=== PATIENT | female | born 1965 | race Caucasian/White ===

== ENCOUNTER 2019-09-08 12:37 | Observation (INO) | payer BC ==
[~2019-09-08] VITALS: Ht 175.3 cm; Wt 81.8 kg
[2019-09-08] MEDS ORDERED: normal saline 1000ML IV soln IVB ONE (13:10)
[2019-09-08 13:12] LABS: BASOPHILS % (AUTO) 0.5 % (0-1); EOSINOPHILS # (AUTO) 0.2 X10'3 (0-0.9); EOSINOPHILS % (AUTO) 2.4 % (0-6); HEMATOCRIT 38.6 % (35.0-45.0); LYMPHOCYTES # (AUTO) 2.4 X10'3 (1.1-4.8); LYMPHOCYTES % (AUTO) 35.1 % (21-51); MEAN CORPUSCULAR HEMOGLOBIN 30.5 PG (27.0-31.0); MEAN CORPUSCULAR HGB CONC 33.7 g/dL (33.0-36.5); MEAN CORPUSCULAR VOLUME 90.5 FL (78-98); MEAN PLATELET VOLUME 8.3 FL (7.4-10.4); MONOCYTES # (AUTO) 0.5 X10'3 (0-0.9); MONOCYTES % (AUTO) 7.9 % (2-12); NEUTROPHILS # (AUTO) 3.7 X10'3 (1.8-7.7); NEUTROPHILS % (AUTO) 54.1 % (42-75); PLATELET COUNT 225 X10'3 (140-440); RED BLOOD COUNT 4.26 X10'6 (4.20-5.60); RED CELL DISTRIBUTION WIDTH 13.5 % (11.5-14.5); WHITE BLOOD COUNT 6.8 X10'3 (4.5-11.0)
[2019-09-08] MEDS ORDERED: iohexol 350MG/ML 100ml bottle IV ONE (13:26)
[2019-09-08 13:28] LABS: ALANINE AMINOTRANSFERASE 22 U/L (12-78); ALBUMIN 3.4 G/DL (3.4-5.0); ALBUMIN/GLOBULIN RATIO 0.9 (1.1-1.5); ALKALINE PHOSPHATASE 92 IU/L (46-116); ANION GAP 8 (8-16); ASPARTATE AMINO TRANSFERASE 26 U/L (10-37); BILIRUBIN,TOTAL 0.3 MG/DL (0.1-1.0); BLOOD UREA NITROGEN 13 MG/DL (7-18); BUN/CREATININE RATIO 17.1 (6.6-38.0); CALCIUM 9.3 MG/DL (8.5-10.1); CHLORIDE 105 MMOL/L (99-107); CREATININE 0.76 MG/DL (0.40-0.90); GLUCOSE 113 MG/DL (70-104); POTASSIUM 3.6 MMOL/L (3.5-5.1); SODIUM 142 MMOL/L (135-145); TOTAL CARBON DIOXIDE 29.1 MMOL/L (24-32); TOTAL PROTEIN 7.1 G/DL (6.4-8.2); eGFR 80 ML/MIN
[2019-09-08] MEDS ORDERED: aspirin 81mg tab.chew PO ONE (15:10)
[2019-09-08] MEDS ORDERED: NO HOME MEDS (15:21)
[2019-09-08] MEDS ORDERED: magnesium hydroxide 30ml (MOM) UD suspension PO PRN (15:50)
[2019-09-08] MEDS ORDERED: morphine 2 MG/ML inj. syringe IV PRN ×2 (15:50)
[2019-09-08] MEDS ORDERED: nitroGLYCERIN 0.4mg SUBLingual tab SL PRN ×2 (15:50→17:55)
[2019-09-08] MEDS ORDERED: ondansetron/PF 4mg/2ml inj IV PRN (15:50)
[2019-09-08] MEDS ORDERED: acetaminophen 325mg tablet PO PRN ×2 (15:50)
[2019-09-08] MEDS ORDERED: HYDROcodone/acetaminophen 5mg/325mg tablet PO PRN (15:50)
[2019-09-08] MEDS ORDERED: mag hydrox/Alum hydrox/simeth 30ml oral suspension PO PRN (15:50)
[2019-09-08] MEDS ORDERED: HYDROcodone/acetaminophen 10/325mg tab PO PRN (15:50)
[2019-09-08 17:28] VITALS: BP 158/92
[2019-09-08] MEDS ORDERED: metoprolol tartrate 1mg/ml inj IV PRN (17:55)
[2019-09-08] MEDS ORDERED: aminophylline 250mg/10ml inj. IV PRN (17:55)
[2019-09-08] MEDS ORDERED: regadenoson 0.4mg/5ml syringe IV PRN (17:55)
[2019-09-08 18:00] VITALS: BP 149/87
--- NOTE | 2019-09-08 18:30 | NUR ---
Problems reprioritized. Patient report given, questions answered & plan of care reviewed with Juan Miguel RN.
--- NOTE | 2019-09-08 18:51 | NUR ---
Patient in room [facility] 307. I have received report from Trisha SHERIDAN and had the opportunity to ask questions and assume patient care.
[2019-09-08 20:00] VITALS: BP 149/87
[2019-09-08 22:00] VITALS: BP 152/66
[2019-09-09] VITALS (12 sets, daily range): BP systolic 138–161; BP diastolic 82–94
[2019-09-09 02:10] LABS: ANION GAP 8 (8-16); BLOOD UREA NITROGEN 10 MG/DL (7-18); BUN/CREATININE RATIO 13.5 (6.6-38.0); CALCIUM 8.7 MG/DL (8.5-10.1); CHLORIDE 104 MMOL/L (99-107); CHOLESTEROL 168 MG/DL (0-200); CREATININE 0.74 MG/DL (0.40-0.90); GLUCOSE 99 MG/DL (70-104); HDL CHOLESTEROL 42 MG/DL (35-60); LDL CHOLESTEROL 108 MG/DL (50-100); POTASSIUM 3.6 MMOL/L (3.5-5.1); SODIUM 141 MMOL/L (135-145); TOTAL CARBON DIOXIDE 29.5 MMOL/L (24-32); TRIGLYCERIDES 125 MG/DL (20-135); eGFR 82 ML/MIN
[2019-09-09 02:22] LABS: BASOPHILS # (AUTO) 0.1 X10'3 (0-0.2); BASOPHILS % (AUTO) 0.8 % (0-1); EOSINOPHILS # (AUTO) 0.2 X10'3 (0-0.9); EOSINOPHILS % (AUTO) 2.7 % (0-6); HEMATOCRIT 39.2 % (35.0-45.0); HEMOGLOBIN 13.2 g/dl (12.0-16.0); LYMPHOCYTES # (AUTO) 2.6 X10'3 (1.1-4.8); MEAN CORPUSCULAR HEMOGLOBIN 30.7 PG (27.0-31.0); MEAN CORPUSCULAR HGB CONC 33.6 g/dL (33.0-36.5); MEAN CORPUSCULAR VOLUME 91.4 FL (78-98); MEAN PLATELET VOLUME 8.5 FL (7.4-10.4); MONOCYTES # (AUTO) 0.5 X10'3 (0-0.9); MONOCYTES % (AUTO) 7.3 % (2-12); NEUTROPHILS # (AUTO) 3.2 X10'3 (1.8-7.7); NEUTROPHILS % (AUTO) 49.2 % (42-75); PLATELET COUNT 222 X10'3 (140-440); RED BLOOD COUNT 4.29 X10'6 (4.20-5.60); RED CELL DISTRIBUTION WIDTH 13.4 % (11.5-14.5); WHITE BLOOD COUNT 6.4 X10'3 (4.5-11.0)
--- NOTE | 2019-09-09 06:10 | NUR ---
Problems reprioritized. Patient report given, questions answered & plan of care reviewed with Alissa SHERIDAN.
[2019-09-09] MEDS ORDERED: aspirin 81mg tablet.DR PO SCH (08:00)
[2019-09-09] MEDS ORDERED: PANT-47 PO (11:31)
[2019-09-09] MEDS ORDERED: LISI-604 PO (11:31)
--- NOTE | 2019-09-09 13:40 | NUR ---
Patient stable for discharge per MD order. All discharge instructions and education reviewed with patient and all questions answered. New prescriptions electronically transmitted to patients pharmacy. PIV discontinued, dressing CDI, Tip intact, patient tolerated well. Tele removed. all known belongings sent with patient. patient ambulated to lobby to pmv driven by family member.
== END 2019-09-09 13:30 | disposition home or self-care (01) ==
LOC: ER 12:37 → ED HOLD 15:47 → MED 3N 17:45
PROVIDERS: ADMIT Internal Medicine; ATTEND Internal Medicine
DX: R07.89 Other chest pain (principal); R42 Dizziness and giddiness; I10 Essential (primary) hypertension; G89.29 Other chronic pain; M54.9 Dorsalgia, unspecified; F17.200 Nicotine dependence, unspecified, uncomplicated; Z90.710 Acquired absence of both cervix and uterus
CPT/HCPCS: 36415; 71045; 71275; 74174; 78452; 80048; 80053; 80061; 83880; 84484; 85025; 87081; 93005; 93017; 96360; 99285; A9500; G0378; J2785; J7030; Q9967

== ENCOUNTER 2024-02-06 08:07 | Emergency (ER) | payer BC ==
[~2024-02-06] VITALS: Ht 175.3 cm; Wt 81.4 kg
[~2024-02-06 08:07] MED LIST: LISI5TAB22 PO; PANT-47 PO
[2024-02-06 08:15] VITALS: BP 209/101; PULSE 69; RESP 18; TEMP 96.7; O2SAT 98
[2024-02-06] MEDS ORDERED: HYDR-3965 PO (09:04)
[2024-02-06] MEDS: ketorolac trometh 30MG/ML vial 30 MG/ML VIAL IM ONE (09:10)
== END 2024-02-06 09:28 | disposition home or self-care (01) ==
LOC: ER 08:08
DX: M25.512 Pain in left shoulder (principal)
CPT/HCPCS: 73030; 96372; 99283; J1885; L3260